=== PATIENT | male | born 1970 | race Caucasian/White ===

== ENCOUNTER 2019-08-21 07:56 | Emergency (ER) | payer OTHER ==
[~2019-08-21] VITALS: Ht 182.9 cm; Wt 117.9 kg
[2019-08-21] MEDS ORDERED: METFORMIN HCL500 MG PO (08:08)
[2019-08-21] MEDS ORDERED: PRINIVIL20 M1 PO (08:09)
[2019-08-21] MEDS ORDERED: LIPITOR 20 MG T20 M1 PO (08:09)
[2019-08-21] MEDS ORDERED: GABAPENTIN100 MG PO (08:09)
[2019-08-21] MEDS ORDERED: [UNRECOGNIZED DRUG - OTHER] (08:10)
[2019-08-21 08:40] LABS: INFLUENZA A ANTIGEN Negative (Negative); INFLUENZA B ANTIGEN Negative (Negative)
[2019-08-21] MEDS ORDERED: AMOXICILLIN 50500 MG PO (09:00)
[2019-08-21 09:12] VITALS: BP 125/76
== END 2019-08-21 09:12 | disposition home or self-care (01) ==
LOC: M.ERS 07:56
PROVIDERS: Family Medicine
DX: J06.9 Acute upper respiratory infection, unspecified (principal)

== ENCOUNTER 2019-10-10 17:13 | Inpatient (IN) | payer OTHER ==
[~2019-10-10] VITALS: Ht 182.9 cm; Wt 123.8 kg
[~2019-10-10 17:13] MED LIST: AMOXICILLIN 50500 MG PO; GABAPENTIN100 MG PO; LIPITOR 20 MG T20 M1 PO; METFORMIN HCL500 MG PO; PRINIVIL20 M1 PO; [UNRECOGNIZED DRUG - OTHER]
[2019-10-10 17:20] VITALS: BP 150/84
[2019-10-10] MEDS ORDERED: TRESIBA100 UNIT/1 SUBQ (17:30)
[2019-10-10] MEDS ORDERED: TRULICITY0.75 MG/0. SUBQ (17:30)
[2019-10-10 18:18] LABS: ABSOLUTE BASOPHILS 0.1 thou/uL (0.0-0.2); ABSOLUTE EOSINOPHILS 0.2 thou/uL (0.0-0.7); ABSOLUTE LYMPHOCYTES 2.6 thou/uL (0.8-5.3); ABSOLUTE MONOCYTES 0.7 thou/uL (0.0-1.2); ABSOLUTE NEUTROPHILS 4.9 thou/uL (1.6-8.1); EOSINOPHILS 2.3 %; HEMATOCRIT 40.4 % (42.0-52.0); HEMOGLOBIN 13.6 gm/dL (14.0-18.0); LYMPHOCYTES 31.2 %; MCH 29.1 pg (26.0-34.0); MCHC 33.6 g/dL (28.0-37.0); MCV 86.7 fL (80.0-100.0); MONOCYTES 8.2 %; MPV 9.5 fl. (7.2-11.1); NUCLEATED RBCS 0 /100WBC; PLATELET COUNT* 241 thou/uL (150-400); POLYS 57.3 %; RBC 4.66 mil/uL (4.50-6.00); RDW-CV 14.4 % (10.5-14.5); WBC 8.5 thou/uL (4.0-11.0)
[2019-10-10 18:25] LABS: CALCIUM 8.6 mg/dL (8.5-10.1); CREATININE 1.1 mg/dL (0.6-1.3); POTASSIUM 3.8 mmol/L (3.5-5.1)
[2019-10-10 18:30] LABS: ALBUMIN 3.8 g/dL (3.4-5.0); TOTAL BILIRUBIN 0.3 mg/dL (<0.1-1.0); TOTAL PROTEIN 6.8 g/dL (6.4-8.2)
[2019-10-10 18:33] LABS: INFLUENZA A ANTIGEN Negative (Negative); INFLUENZA B ANTIGEN Negative (Negative)
[2019-10-10 18:49] LABS: APTT 24.9 Seconds (25.0-31.3); PROTIME 10.5 Seconds (9.20-11.50)
[2019-10-10 21:00] VITALS: BP 118/64
[2019-10-10 21:44] VITALS: BP 122/76
[2019-10-11] VITALS: BP 124/73
[2019-10-11 04:00] VITALS: BP 108/70
--- NOTE | 2019-10-11 05:35 | NUR ---
REPORT RECEIVED FROM ER NURSE TALON. PATIENT ORIENTED TO UNIT, ROOM, BED, CALL-LIGHT, AND HOSPITAL POLICY. ASSESSMENT COMPLETED CHARTED. PATIENT IS SR/ST ON THE MONITOR. HOURLY ROUNDING IN PLACE FOR PATIENT SAFETY. CLWR.
--- NOTE | 2019-10-11 09:36 | EKG ---
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1970 Requested By: Josee Patel Order Number: [id number] MD: Richard Carr Measurements Intervals [place] Rate: 86 P: 57 RI: 161 QRS: 56 QRSD: 102 T: 52 QT: 361 QTc: 432 Interpretive Statements Sinus rhythm Borderline low voltage, extremity leads Baseline wander in lead(s) V2,V5 No previous ECG available for comparison Electronically Signed On 10-11-2019 9:35:08 CDT by Richard Carr [email or web address] <ELECTRONICALLY SIGNED> By: Richard Carr MD, [facility] 10/11/19 0935 1745 1745 Richard Carr MD, [facility] /EPI
[2019-10-11 09:46] VITALS: BP 95/68
--- NOTE | 2019-10-11 10:49 | EKG ---
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1970 Requested By: Ameya Villegas Order Number: [id number] Kemi MD: Richard Carr Measurements Intervals [place] Rate: 62 P: 50 MA: 167 QRS: 53 QRSD: 110 T: 47 QT: 425 QTc: 432 Interpretive Statements Sinus rhythm Borderline low voltage, extremity leads Baseline wander in lead(s) V6 Compared to ECG 10/10/2019 17:45:05 No significant changes Electronically Signed On 10-11-2019 10:47:54 CDT by Richard Carr [email or web address] <ELECTRONICALLY SIGNED> By: Richard Carr MD, FAC 10/11/19 1047 0019 0019 Richard Carr MD, [facility] /EPI
--- NOTE | 2019-10-11 11:49 | NUR ---
SPOKE WITH PT OVER PHONE TO DISCUSS HOME SITUATION/DC PLANNING. 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 HE USES NO EQUIPMENT. PLANS TO RETURN HOME AT DC AND COMPLETE 14 DAYS QUARENTINE FOR COVID-19 (STILL PENDING RESULT). ANSWERED QUESTIONS AND DISCUSSED COVID-19. DISCUSSED WITH NURSE AND MADE AWARE PT HAD QUESTIONS AND STILL C/O OF HEADACHE. PT DENIES OTHER DC NEEDS.
[2019-10-11 12:29] VITALS: BP 95/68
[2019-10-11 13:17] VITALS: BP 97/58
--- NOTE | 2019-10-11 14:00 | NUR ---
ASSUMED CARE OF PT AROUND 0730 THIS AM. REFER TO ASSESSMENT. PT IS ON ENHANCED PRECAUTIONS FOR COVID 19 SYMPTOMS. CARDIOLOGY CONSULTED THIS SHIFT FOR CHEST PAIN AND DO NOT RECOMMEND ANY FURTHER TESTING. CARDIOLOGISTS OK WITH DC HOME. PT INSTRUCTED TO FOLLOW COVID 19 ISOLATION RECOMMENDATIONS. COVID 19 EDUCATED GIVEN TO PT AND PT REPORTS UNDERSTANDING. NO OTHER CONCERNS AT THIS TIME. CLWR. WCTM.
--- NOTE | 2019-10-12 11:28 | CON ---
[address] [address] CONSULTATION Name: SOLOMON JUSTIN Room: [address] IN M.R.#: [id number] Admission: 10/10/19 Attend Phys: Timothy Hearn Discharge: 10/11/19 Date of : 68 Report #: [id number] THIS REPORT FOR: //name// cc: Richard Sheehan MD, David L. MD ~ THIS REPORT FOR: //name// CC: Richard Villegas DATE OF SERVICE: 10/11/2019 CARDIOLOGY CONSULTATION HISTORY OF PRESENT ILLNESS: The patient is a 49-year-old single white male who I was asked to see in the hospital after he complained of chest pain. The patient has no previous history of heart disease. He states that years ago, he had some chest pain and apparently had stress test years ago that showed no significant heart disease. For the past couple of days, he has been coughing. He does note some shortness of breath. Starting last night, he developed a constant pressure in his chest. There is no radiation of the pain. There was no associated nausea. He did have a cold sweat. He woke up yesterday and he still had the chest pressure. He drove himself to the hospital and was admitted. He denied the pressure being related to food. He has had no bleeding. The pressure was not related to coughing. He also complained of headache. Denied any blurred vision. He denied any recent foreign travel. Denied any contact with anyone with pneumonia. PAST MEDICAL HISTORY: He has had previous neck surgery, diabetes, hyperlipidemia. MEDICATIONS: Include metformin, lisinopril for renal protection, Lipitor, gabapentin, insulin. ALLERGIES: He has no known drug allergies. 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 Quit smoking 9 years ago. Does drink alcohol occasionally, used to drink up to a case a week. FAMILY HISTORY: His father had aortic valve replacement. REVIEW OF SYSTEMS: No history of stroke. He has had Hu palsy. No asthma. No liver disease. He has had kidney stones. No cancer. No psychiatric illness. [place] [address] CONSULTATION Name: SOLOMON JUSTIN Room: [address] IN ..#: [id number] Admission: 10/10/19 Attend Phys: Timothy Hearn Discharge: 10/11/19 Date of : 68 Report #: [id number] PHYSICAL EXAMINATION: GENERAL: Revealed a middle-aged male lying in bed. He appeared in no distress. VITAL SIGNS: He had blood pressure of 120/70, pulse is 80. He was afebrile. HEENT: He is anicteric. Conjunctivae pink. Mucous membranes moist. NECK: Veins nondistended. No carotid bruits. Neck supple. CHEST: Clear to auscultation. CARDIOVASCULAR: Regular rate without murmur or rub. ABDOMEN: Soft. EXTREMITIES: Had no edema. Posterior tibial pulse 2+ bilaterally. SKIN: Warm and dry. NEUROLOGIC: Nonfocal. RADIOLOGICAL DATA: His ECG on admission showed a sinus rhythm. There was no significant ST or T-wave change noted. Workup in the Emergency Room, he had a portable chest x-ray that showed normal heart size, clear lung hernandez. LABORATORY DATA: Sodium 141, creatinine 1.1. Liver function studies were normal. Troponins all less than 0.06. His D-dimer was 0.4. White blood cell count 8.5, hematocrit 40.4. IMPRESSION AND RECOMMENDATIONS: 1. Chest tightness. Atypical for angina. Suspect noncardiac. Recommend no further cardiac evaluation. 2. Bronchitis. 3. Diabetes. 4. Hyperlipidemia. The patient is on a statin drug. 5. Previous tobacco abuse. 6. History of excessive alcohol intake. <ELECTRONICALLY SIGNED> By: Richard Carr MD, [facility] 10/12/19 1128 1256 [id number] Carr MD, FAC /nt
== END 2019-10-11 14:05 | disposition home or self-care (01) | DRG 195 ==
LOC: M.ERS 17:13 → M.TBA-ER 21:47 → M.2W 21:47
PROVIDERS: Physician Assistant; ADMIT Internal Medicine
DX: R09.1 Pleurisy (principal); R51 Headache; R06.02 Shortness of breath; E11.40 Type 2 diabetes mellitus with diabetic neuropathy, unspecified; E78.5 Hyperlipidemia, unspecified; J40 Bronchitis, not specified as acute or chronic; Z79.84 Long term (current) use of oral hypoglycemic drugs; Z79.899 Other long term (current) drug therapy; Z90.89 Acquired absence of other organs; Z87.891 Personal history of nicotine dependence

== ENCOUNTER → 2019-11-08 | Outpatient (CLI) | payer OTHER ==
[~2019-11-08] MED LIST changes: +TRESIBA100 UNIT/1 SUBQ; +TRULICITY0.75 MG/0. SUBQ
== END ==
LOC: M.LAB 13:24
DX: E11.649 Type 2 diabetes mellitus with hypoglycemia without coma (principal); E78.5 Hyperlipidemia, unspecified